=== PATIENT | female | born 1990 | race Caucasian/White ===

== ENCOUNTER → 2019-11-18 | Emergency (ER) | payer BC ==
--- NOTE | 2019-11-18 21:53 | NUR ---
ED Nurse Note: PT REFUSED TO BE SEEN.
--- NOTE | 2019-11-18 21:56 | Emergency Room Report ---
History of Present Illness General Chief Complaint: To Be Triaged Source: Patient Present Illness HPI This a 29-year-old female came in the complaint of ankle injury from playing basketball. She refused to have triaged. She refused to be seen. She left. I did not see this patient. Medical Decision Making Diagnostic Impression: Primary Impression: Patient left without being seen Status: unchanged Disposition: LEFT W/OUT BEING SEEN Condition: Stable Atilio Magdaleno MD Nov 18, 2019 21:56
== END | disposition left against medical advice (07) ==
LOC: EMR 22:05
DX: S99.911A Unspecified injury of right ankle, initial encounter (principal); Y93.67 Activity, basketball; Y92.9 Unspecified place or not applicable; Z53.29 Procedure and treatment not carried out because of patient's decision for other reasons